=== PATIENT | female | born 1965 | race Caucasian/White ===

== ENCOUNTER 2021-09-08 08:52 | Outpatient (CLI) | payer OTHER ==
[~2021-09-08 08:52] MED LIST: AVAPRO150 MG; CETIRIZINE HCL10 MG; PREDNISONE10 MG; SINGULAIR10 MG; TUSSI PRES-B L120 M1; VENTOLIN HFA18 GM
== END 2021-09-08 08:56 | disposition home or self-care (01) ==
LOC: NUCLEAR 08:52
PROVIDERS: ATTEND Internal Medicine Gastroenterology
DX: K81.0 Acute cholecystitis (principal)

== ENCOUNTER 2021-11-26 07:29 | Outpatient (CLI) | payer OTHER | END 2021-11-26 07:48 | disposition home or self-care (01) | LOC: TOM 07:29 | PROVIDERS: ATTEND Internal Medicine Gastroenterology | DX: Z12.11 Encounter for screening for malignant neoplasm of colon (principal) ==